=== PATIENT | male | born 1970 | race Caucasian/White ===

== ENCOUNTER 2019-11-01 10:03 | Emergency (ER) | payer BC, OTHER ==
[2019-11-01 10:08] VITALS: BP 124/69; PULSE 86; TEMP 98.7; BMI 29.9
[2019-11-01] MEDS ORDERED: DEXAMETHASONE SOD PHOSPHATE 10 MG/1 ML VIAL IM ONE (10:18)
[2019-11-01] MEDS ORDERED: FAMOTIDINE 20 MG TABLET PO ONE (10:18)
--- NOTE | 2019-11-01 10:31 | PDOC ---
History of Present Illness - General Chief Complaint: Bite Stated Complaint: LF HAND INJURY (BEE STING) Time Seen by Provider: 11/01/19 10:11 History Source: Patient Exam Limitations: Clinical Condition - History of Present Illness Initial Comments: 11/01/19 10:26 Patient with no significant past medical history present with complaint of worsening swelling and redness to left hand status post bee sting by a bee on her left middle finger yesterday. Patient reported throbbing pain to left middle finger from area of bee sting. Patient also reports some mild redness in the face. Denies shortness of breath, difficulty breathing, tongue or lip swelling. Patient has not taken anything for symptoms. Denies fever, chills. Denies history of anaphylactic reaction from bee sting. Timing/Duration: reports: yesterday Past History - Medical History Allergies/Adverse Reactions: Allergies Allergy/AdvReac Type Severity Reaction Status Date / Time No Known Allergies Allergy Verified 11/01/19 10:06 Home Medications: Ambulatory Orders Famotidine [Pepcid -] 20 mg PO BID 5 Days #10 tablet 11/01/19 predniSONE [Deltasone -] 20 mg PO BID 5 Days #10 tablet 11/01/19 COPD: No - Immunization History Immunization Up to Date: Yes - Psycho-Social/Smoking History Smoking History: Never smoked - Substance Abuse Hx (Audit-C & DAST Scrn) How often the patient has a drink containing alcohol: Never Score: In Men: 4 or > Positive; In Women: 3 or > Positive: 0 Screen Result (Pos requires Nsg. Audit-10AR): Negative In the last yr the pt used illegal drug/Rx for NonMed reason: No Score: Yes response is considered Positive: 0 Screen Result (Positive result requires Nsg. DAST-10): Negative Review of Systems - Review of Systems Able to Perform ROS?: Yes Is the patient limited Kiswahili proficient: No Constitutional: No: Chills, Fever, Malaise HEENTM: No: Symptoms Reported, See HPI, Eye Pain, Blurred Vision, Tearing, Recent change in vision, Double Vision, Cataracts, Ear Pain, Ocular Prothesis, Ear Discharge, Nose Pain, Nose Congestion, Tinnitus, Nose Bleeding, Hearing Loss, Throat Pain, Throat Swelling, Mouth Pain, Dental Problems, Difficulty Swallowing, Mouth Swelling, Other Respiratory: No: Symptoms reported, See HPI, Cough, Orthopnea, Shortness of Breath, SOB with Exertion, SOB at Rest, Stridor, Wheezing, Productive cough, Hemoptysis, Other Cardiac (ROS): No: Symptoms Reported, See HPI, Chest Pain, Edema, Irregular Heart Rate, Lightheadedness, Palpitations, Syncope, Chest Tightness, Other Musculoskeletal: Yes: Symptoms Reported, See HPI, Muscle Pain (Pain to left middle finger over area of bee sting) Integumentary: Yes: Symptoms Reported, See HPI, Erythema (Left hand), Flushing (Face) Neurological: No: Paresthesia, Seizure, Weakness, Unsteady Gait, Dizziness All Other Systems: Reviewed and Negative *Physical Exam - Vital Signs Last Vital Signs Temp Pulse Resp BP Pulse Ox 98.7 F 86 20 124/69 100 11/01/19 10:06 11/01/19 10:06 11/01/19 10:06 11/01/19 10:06 11/01/19 10:06 - Physical Exam 11/01/19 10:32 GENERAL: Well developed, well nourished. Awake and alert. No acute distress. HEENT: Normocephalic, atraumatic. PERRLA, EOMI. No conjunctival pallor. Sclera are non-icteric. Moist mucous membranes. Oropharynx is clear. NECK: Supple. Full ROM. CARDIOVASCULAR: Regular rate and rhythm. No murmurs, rubs, or gallops. Distal pulses are 2+ and symmetric. PULMONARY: No evidence of respiratory distress. Lungs clear to auscultation bilaterally. No wheezing, rales or rhonchi. MUSCULOSKELETAL Normal range of motion at all joints. SKIN: Warm and dry. Normal capillary refill. No increased erythema to left whole hand with swelling to left middle finger. Erythema blanching to hand with increased erythema to middle finger over area of bee sting. Mild flushing in face NEUROLOGICAL: Alert, awake, appropriate. Gait is normal without ataxia. PSYCHIATRIC: Cooperative. Good eye contact. Appropriate mood General Appearance: Yes: Nourished, Appropriately Dressed. No: Apparent Distress Medical Decision Making - Medical Decision Making 11/01/19 10:28 Patient with no significant past medical history present with complaint of worsening swelling and redness to left hand status post bee sting by a bee on her left middle finger yesterday. Patient reported throbbing pain to left middle finger from area of bee sting. Patient also reports some mild redness in the face. Denies shortness of breath, difficulty breathing, tongue or lip swelling. Patient has not taken anything for symptoms. Denies fever, chills. Denies history of anaphylactic reaction from bee sting. Exam significant for increased blanching erythema to left dorsal hand with mild swelling to hand with increased swelling to left middle finger. Oropharynx patent. Patient in no acute distress. Patient symptoms likely allergic reaction from bee sting. Decadron 10 mg IM and Pepcid 40 mg p.o. given for allergic reaction as patient is driving. Patient be discharged home prednisone taper dose for 5 days and Pepcid for antihistamine effect. Patient will be given doxycycline for infection prophylaxis to take if worsening symptoms are persistent symptoms after taking steroids antihistamine with strict follow-up instructions. Patient will be observed for 30 minutes after medication before discharge 11/01/19 17:00 Patient observed for 40 minutes without any adverse reaction. Patient stable for discharge on prednisone 20 mg twice daily for 5 days and Pepcid 20 mg twice daily for 5 days for antihistamine effect with strict follow-up instructions Discharge - Discharge Information Problems reviewed: Yes Clinical Impression/Diagnosis: Bee sting allergy, Allergic dermatitis Condition: Stable Disposition: HOME - Admission No - Additional Discharge Information Prescriptions: predniSONE [Deltasone -] 20 mg PO BID 5 Days #10 tablet Famotidine [Pepcid -] 20 mg PO BID 5 Days #10 tablet - Follow up/Referral Referrals: Sujatha Villanueva MD [Staff Physician] - - Patient Discharge Instructions Patient Printed Discharge Instructions: DI for Insect Bites and Stings Additional Instructions: Your symptoms likely allergic reaction from the bee sting. Take prescribed medication as prescribed and finish it. Follow-up referring dermatology if redness and swelling persist for more than 3 days. Come back to the emergency room if worsening swelling, shortness of breath, difficulty breathing, tongue or lip swelling as this is an emergency and needs to be treated right away otherwise follow-up with your primary care as needed - Post Discharge Activity
[2019-11-01] MEDS ORDERED: DEXAMETHASONE SOD PHOSPHATE 10 MG/1 ML VIAL ONE (10:32)
[2019-11-01] MEDS ORDERED: FAMOTIDINE 20 MG TABLET ONE (10:32)
== END 2019-11-01 11:27 | disposition home or self-care (01) ==
LOC: JERFT 10:03
PROC: 3E033GC Introduction of Other Therapeutic Substance into Peripheral Vein, Percutaneous Approach (ICD-10-PCS; principal; 2019-11-01)
DX: L23.9 Allergic contact dermatitis, unspecified cause (principal); Z91.030 Bee allergy status
CPT/HCPCS: 99284-25; J1100